=== PATIENT | female | born 1975 | race Asian ===

== ENCOUNTER 2022-03-02 08:40 | Emergency (ER) | payer OTHER, BC ==
[~2022-03-02] VITALS: Ht 152.4 cm; Wt 47.6 kg
[2022-03-02 08:45] VITALS: BP_SYST 147
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
--- NOTE | 2022-03-02 09:15 | NUR ---
ER at bedside examining patient.
[2022-03-02] MEDS ORDERED: NAPR-688 PO (09:21)
[2022-03-02] MEDS ORDERED: TRAM50TA PO (09:21)
[2022-03-02] MEDS ORDERED: BACITRACIN 1 GM OINT TP ONE (09:35)
--- NOTE | 2022-03-02 09:59 | NUR ---
Patient given written and verbal discharge instructions and verbalizes understanding. ER MD discussed with patient the results and treatment provided. Patient in stable condition. ID arm band removed. Wound cleansed with normal saline, bacitracin applied and nonadherant dressing applied, no active bleeding. Rx of Naproxen and Ultram given. Patient educated on pain management and to follow up with PMD. Opportunity for questions provided and answered. Medication side effect fact sheet provided.
[2022-03-02 10:01] VITALS: BP_SYST 147
== END 2022-03-02 10:01 | disposition home or self-care (01) ==
LOC: EDBD 08:40 → SED 08:40
DX: S20.211A Contusion of right front wall of thorax, initial encounter (principal); Z79.899 Other long term (current) drug therapy; V49.40XA Driver injured in collision with unspecified motor vehicles in traffic accident, initial encounter; Y93.89 Activity, other specified; Y92.89 Other specified places as the place of occurrence of the external cause; Y99.8 Other external cause status
CPT/HCPCS: 71045; 93005; 99283